=== PATIENT | male | born 1975 | race Caucasian/White ===

== ENCOUNTER 2017-04-04 16:05 | Emergency (ER) | payer OTHER ==
[~2017-04-04] VITALS: Ht 167.6 cm; Wt 127.0 kg
[~2017-04-04 16:05] MED LIST: ASPI-618 PO; Acetaminophen PO; INSU3INS6 SUBCUT
[2017-04-04] MEDS ORDERED: KETOROLAC TROMETHAMINE 30 MG INJ IVP ONE (17:00)
[2017-04-04 17:09] LABS: BASOPHILS % (AUTO) 0.4 % (0.0-2.0); EOSINOPHILS # (AUTO) 0.1 K/uL (0.0-0.7); EOSINOPHILS % (AUTO) 0.8 % (0.0-7.0); HEMOGLOBIN 13.3 G/DL (14.0-18.0); LYMPHOCYTES # (AUTO) 3.1 K/UL (0.8-4.8); LYMPHOCYTES % (AUTO) 25.1 % (20.5-51.5); MEAN CORPUSCULAR HEMOGLOBIN 23.6 UUG (27.0-31.0); MEAN CORPUSCULAR HGB CONC 32 g/dL (32.0-37.0); MEAN CORPUSCULAR VOLUME 74.9 FL (82.0-92.0); MONOCYTES # (AUTO) 0.5 K/UL (0.1-1.30); MONOCYTES % (AUTO) 4.3 % (0.0-11.0); NEUTROPHILS # (AUTO) 8.5 K/UL (1.8-8.9); NEUTROPHILS % (AUTO) 69.4 % (38.5-71.5); PLATELET COUNT (AUTO) 345 K/UL (150-450); RED BLOOD CELL COUNT(AUTO) 5.61 MIL/UL (4.7-6.1); WHITE BLOOD COUNT (AUTO) 12.2 K/UL (4.0-11.2)
[2017-04-04 17:14] LABS: CREATININE 0.7 mg/dL (0.6-1.3); POTASSIUM 3.9 mmol/L (3.5-5.1)
[2017-04-04 17:21] LABS: BILIRUBIN,DIRECT 0.1 mg/dL (0.0-0.2); BILIRUBIN,TOTAL 0.3 mg/dL (0.2-1.0); TOTAL PROTEIN, SERUM 7.3 g/dL (6.4-8.2)
[2017-04-04] MEDS ORDERED: HYDROCODONE/APAP 5-325MG TABLET PO ONE (17:30)
--- NOTE | 2017-04-04 17:49 | NUR ---
Patient is resting comfortably in bed with eyes closed, pending results & disposition
--- NOTE | 2017-04-04 19:59 | NUR ---
Patient discharged to home in stable conditon. Written and verbal after care instructions given. Patient verbalizes understanding of instructions.
[2017-04-04 20:00] VITALS: BP 127/73
== END 2017-04-04 20:01 | disposition home or self-care (01) ==
LOC: ER 16:07
DX: R07.89 Other chest pain (principal); E11.9 Type 2 diabetes mellitus without complications; Z79.4 Long term (current) use of insulin; Z79.82 Long term (current) use of aspirin; I25.2 Old myocardial infarction; Z95.5 Presence of coronary angioplasty implant and graft
CPT/HCPCS: 36415; 71010; 80048; 80076; 84484 ×2; 85025; 85730; 93005 ×2; 96374; 99285; A4663; 70030-TC

== ENCOUNTER 2017-04-04 21:28 | Emergency (ER) | payer OTHER ==
[~2017-04-04] VITALS: Ht 167.6 cm; Wt 127.0 kg
--- NOTE | 2017-04-04 21:47 | NUR ---
Dr. Bella in room for rachel.
[2017-04-04 22:03] VITALS: BP 118/74
--- NOTE | 2017-04-04 22:03 | NUR ---
Patient discharged to home in stable conditon. Written and verbal after care instructions given. Patient verbalizes understanding of instructions. patient left with stable gait.
== END 2017-04-04 22:04 | disposition home or self-care (01) ==
LOC: ER 21:33
DX: R07.89 Other chest pain (principal); E11.9 Type 2 diabetes mellitus without complications; Z79.4 Long term (current) use of insulin; Z79.82 Long term (current) use of aspirin; Z95.5 Presence of coronary angioplasty implant and graft
CPT/HCPCS: A4663

== ENCOUNTER 2019-03-22 01:51 | Emergency (ER) | payer SELFPAY ==
[~2019-03-22] VITALS: Ht 167.6 cm; Wt 127.0 kg
[~2019-03-22 01:51] MED LIST changes: -ASPI-618 PO; -Acetaminophen PO
--- NOTE | 2019-03-22 01:54 | NUR ---
Came in to ER ambulatory c/o L chest pain radiating to L arm, shoulder and back. To room 2B. Patient is diaphoretic. Stat EKG done. Seen and evaluated by Dr. Musa.
[2019-03-22 02:27] LABS: BASOPHILS # (AUTO) 0.1 K/uL (0.0-8.0); BASOPHILS % (AUTO) 0.5 % (0.0-2.0); EOSINOPHILS # (AUTO) 0.1 K/uL (0.0-0.7); EOSINOPHILS % (AUTO) 0.9 % (0.0-7.0); HEMATOCRIT 40.3 % (36.7-47.1); HEMOGLOBIN 12.9 g/dL (12.5-16.3); LYMPHOCYTES # (AUTO) 3.6 K/uL (20.0-40.0); LYMPHOCYTES % (AUTO) 31.9 % (20.5-51.5); MEAN CORPUSCULAR HEMOGLOBIN 24.2 uug (23.8-33.4); MEAN CORPUSCULAR HGB CONC 32 g/dL (32.5-36.3); MEAN CORPUSCULAR VOLUME 75.4 fL (73.0-96.2); MONOCYTES # (AUTO) 0.7 K/uL (2.0-10.0); MONOCYTES % (AUTO) 5.8 % (0.0-11.0); NEUTROPHILS # (AUTO) 6.8 K/uL (1.8-8.9); NEUTROPHILS % (AUTO) 60.9 % (38.5-71.5); PLATELET COUNT (AUTO) 311 K/uL (152-348); RED BLOOD CELL COUNT(AUTO) 5.34 MIL/uL (4.06-5.63); WHITE BLOOD COUNT (AUTO) 11.2 K/uL (3.6-10.2)
--- NOTE | 2019-03-22 02:30 | NUR ---
Patient resting now and claims he feels a little better; L chest pain down to 6/10.
[2019-03-22 02:52] LABS: CREATININE 1.4 mg/dL (0.6-1.3); POTASSIUM 3.5 mmol/L (3.5-5.1)
[2019-03-22 03:03] LABS: BILIRUBIN,DIRECT 0.1 mg/dL (0.0-0.2); BILIRUBIN,TOTAL 0.4 mg/dL (0.2-1.0); TOTAL PROTEIN, SERUM 7.4 g/dL (6.4-8.2)
--- NOTE | 2019-03-22 03:20 | NUR ---
[facility] called for patient's heart cath report as per Dr. Musa's request; awaiting for call back or report.
--- NOTE | 2019-03-22 04:00 | NUR ---
2nd Troponin drawn by center medical and lab director. NAD noted. VS stable. Denies chest pain.
--- NOTE | 2019-03-22 05:22 | NUR ---
Patient discharged to home in stable conditon. Written and verbal after care instructions given. Patient verbalizes understanding of instructions.
[2019-03-22 05:27] VITALS: BP 122/60
== END 2019-03-22 05:25 | disposition home or self-care (01) ==
LOC: ER 01:53
DX: R07.89 Other chest pain (principal); E11.9 Type 2 diabetes mellitus without complications; Z79.4 Long term (current) use of insulin
CPT/HCPCS: 36415; 70030-TC; 71045; 85025; 93005; A4663; J7030

== ENCOUNTER 2023-04-28 00:18 | Emergency (ER) | payer OTHER ==
[~2023-04-28 00:18] MED LIST changes: +INSU3INS6 SQ; -INSU3INS6 SUBCUT
--- NOTE | 2023-04-28 00:20 | NUR ---
PT WAS CALLED INTHE WAITING ROOM WITH NO ANSWER.
--- NOTE | 2023-04-28 00:40 | NUR ---
PT CALLED THE WAITING RM WITH NO RESPONSE.
--- NOTE | 2023-04-28 01:00 | NUR ---
PT CALLED A THIRD TIME WITH NO ANSWER.
== END 2023-04-28 01:00 | disposition home or self-care (01) ==
LOC: ER 00:23
DX: Z53.21 Procedure and treatment not carried out due to patient leaving prior to being seen by health care provider (principal)